=== PATIENT | male | born 1940 | race Caucasian/White ===

== ENCOUNTER 2016-12-16 06:15 | Day surgery (SDC) | payer OTHER ==
[2016-12-16] VITALS (14 sets, daily range): BP systolic 117–144; BP diastolic 53–82; PULSE 62–138; RESP 10–18; Ht 165.1 cm; Wt 81.5 kg
[~2016-12-16] VITALS: Ht 165.1 cm; Wt 81.5 kg
[~2016-12-16 06:15] MED LIST: ATOR20TA38 PO; CARB1TAB18 PO; CHOL2000 PO; DONE10TA7 PO; ERGO500014 PO; FER325 PO; FURO40TA4 PO; INSU100V27 SC; LANT3I SC; LEVO500T10 PO; MEMA28CA PO; METO10TA92 PO; METO25TA4 PO; METR500T PO; PANT40TA3 PO; SAN30GM TOP
[2016-12-16] MEDS ORDERED: LIDOCAINE 1% (MDV) 20 ML INJ ONE (07:07)
[2016-12-16] MEDS ORDERED: MIDAZOLAM 1 MG/ML 2 ML INJ ONE (07:07)
[2016-12-16] MEDS ORDERED: FENTAnyl 50 MCG/ML VIAL ONE (07:07)
[2016-12-16 07:17] LABS: BASOPHIL # 0.1 10^3/ul (0.0-0.1); BASOPHILS % 0.5 % (0.0-2.0); EOSINOPHILS # 0.2 10^3/ul (0.0-0.5); EOSINOPHILS % 2.2 % (0.0-7.0); HEMOGLOBIN 8.9 g/dl (14.0-18.0); LYMPHOCYTES # 3.2 10^3/ul (0.8-2.9); LYMPHOCYTES % 34.3 % (15.0-51.0); MEAN CORPUSCULAR HEMOGLOBIN 30.1 pg (29.0-33.0); MEAN CORPUSCULAR VOLUME 91.2 fl (82.0-101.0); MONOCYTE # 0.6 10^3/ul (0.3-0.9); MONOCYTES % 5.9 % (0.0-11.0); NEUTROPHIL # 5.3 10^3/ul (1.6-7.5); NEUTROPHILS % 56.8 % (39.0-77.0); PLATELET COUNT 238 10^3/UL (140-415); RED BLOOD COUNT 2.96 10^6/ul (4.70-6.10); WHITE BLOOD COUNT 9.3 10^3/ul (4.8-10.8)
[2016-12-16 07:34] LABS: INR 1.07; PROTIME 13.9 Sec (12.2-14.2); PT RATIO 1.1
[2016-12-16 07:35] LABS: PARTIAL THROMBOPLASTIN TIME 36.4 Sec (25.0-35.0)
[2016-12-16 07:36] LABS: ALBUMIN 3.7 g/dl (3.3-4.9); ALBUMIN/GLOBULIN RATIO 0.69; BILIRUBIN,INDIRECT 0.2 mg/dl (0-1.1); BILIRUBIN,TOTAL 0.2 mg/dl (0.2-1.3); CALCIUM 9.4 mg/dl (8.4-10.2); CREATININE 0.91 mg/dl (0.61-1.24); POTASSIUM 4.4 mmol/L (3.5-5.1)
--- NOTE | 2016-12-16 07:41 | RADRPT ---
PROCEDURE: XR Chest AP portable CLINICAL INDICATION: Preop TECHNIQUE: An AP portable radiograph of the chest was submitted. COMPARISON: 03/19/2016 FINDINGS: Support Hardware: None Cardiovascular: The cardiovascular silhouette appears unremarkable. Lung Mcdaniel: The lung mcdaniel appear clear with no nodule, alveolar infiltrate, or interstitial promi nence evident. Pleural Spaces: No pneumothorax or pleural effusion is identified. Osseous Structures: The osseous structures appear intact. Soft Tissues: The soft tissues appear unremarkable. IMPRESSION: Stable and unremarkable portable chest. Physician Maribel Date Time Electronically viewed and signed by [place] Physician on 12/16/2016 07:41 RH/
[2016-12-16] MEDS ORDERED: HEPARIN 1000 UNITS/ML 10 ML INJ ONE (08:19)
[2016-12-16] MEDS ORDERED: IODIXANOL LOCM 100 ML BTL ONE (08:19)
[2016-12-16] MEDS ORDERED: CLOPIDOGREL 300 MG TAB ONE ×2 (08:40→08:47)
[2016-12-16] MEDS ORDERED: CLOPIDOGREL 75 MG TAB PO ONE (09:00)
--- NOTE | 2016-12-16 09:29 | OPR ---
Date/Time of Note Date/Time of Note DATE: 12/16/16 TIME: 09:27 Operative Report Preoperative Diagnosis R foot gangrene Postoperative Diagnosis same Operation/Procedure Performed Right leg revascularization Surgeon: JAIR CAMPOS MD Anesthesia: other Estimated Blood Loss: none Complications: None JAIR CAMPOS MD Dec 16, 2016 09:29
--- NOTE | 2016-12-16 09:43 | OPR ---
DATE OF OPERATION: 12/16/2016 PREOPERATIVE DIAGNOSIS: Diagnosis right second toe and heel gangrene. POSTOPERATIVE DIAGNOSIS: Right second toe and heel gangrene. OPERATION PERFORMED: 1. Abdominal aortogram. 2. Bilateral lower extremity runoff. 3. Percutaneous revascularization of the right superficial femoral artery using mechanical atherectomy and angioplasty. SURGEON: Kendall Sterling MD ANESTHESIA: Local anesthesia with sedation. ESTIMATED BLOOD LOSS: Minimal. COMPLICATIONS: There were no intraprocedural complications. INDICATIONS: This is a 76-year-old man. He has Alzheimer disease. He has had a previous stroke. He has developed gangrene of the right second toe and he has a plantar ulcer with some infection. He has chronic heel gangrene. He had a recent arterial duplex that showed subtotal occlusion of the right SFA. I brought him in today for right lower extremity revascularization to salvage the limb. I discussed with his family the options of just attempting the foot rather than trying to salvage it, and they are adamant that they want to try and save his foot. OPERATIVE PROCEDURE: Patient was brought to the construction or leak gang laborer, placed on table in supine position. Left groin was prepped and draped in the usual sterile fashion. I began by infiltrating over the left common femoral artery using 10 cc 1 percent lidocaine. Using ultrasound guidance to identify the left common femoral artery, I then used a micropuncture needle to enter the artery under ultrasound guidance. An 0.018 wire was inserted through the needle into the artery and then a micropuncture sheath was advanced over the wire into the artery. I then advanced a 0.035 Bentson wire up into the abdominal aorta. I exchanged the micropuncture sheath for a 5-Latvian sheath over the wire. I advanced the Omni Flush catheter into the infrarenal aorta and did an aortogram. I advanced the Omni Flush catheter up and over the bifurcation using an Advantage wire for support, and advanced it down into the right mid SFA and did angiography down the right lower extremity. FINDINGS OF ANGIOGRAPHY: The infrarenal aorta is calcified but patent. There is no significant stenosis. Both common external and internal iliac arteries are ectatic and calcified, but widely patent. The bilateral common superficial and profunda femoral arteries are patent in the upper thigh. The right superficial femoral artery is patent down to a few cm above the adductor where there is a focal area of subtotal occlusion. Below this, the artery reconstitutes and is patent and good caliber. There is some diffuse irregularity through the popliteal but it is patent below the knee. There is single-vessel runoff via the peroneal artery. The anterior and posterior tibial arteries are completely occluded and are not visualized at all. The peroneal artery is patent down to the ankle. It then gives off collaterals into the foot which mainly fill a small and diseased dorsalis pedis artery. There is not tremendous flow into the foot itself, although the peroneal is patent all the way down. It does collateralize into the foot. I decided to treat the SFA to help improve perfusion into the foot. I then advanced an Advantage wire across the subtotal occlusion in the SFA. I gave the patient 5000 units of heparin intravenously. I then exchanged the 5-Latvian sheath in the left groin for a 6-Latvian 45- cm sheath which was left in the right superficial femoral artery. I then advanced the Quick Cross catheter through the subtotal occlusion and into the above- knee popliteal. I then advanced a 0.014 V-14 control wire through the Quick Cross, and I removed the Quick Cross catheter. I then used a SilverHawk atherectomy device to treat the subtotal occlusion in the SFA and made four passes, rotating the device with each pass to get a different cutting area. I then post dilated this with a 5 mm x 8 cm balloon to 12 atmospheres. There was still a little bit of a waist, so I then used a 6 mm x 4 cm AngioSculpt balloon to treat the segment. IT improved and after the AngioSculpt, there was no dissection. The artery was widely patent with less than 20 percent residual stenosis at the site of the area of previous subtotal occlusion. There is very brisk flow straight through. There was some mild persistent narrowing but it did not complete give out even with AngioSculpt and high-pressure inflation. I did not feel a stent was necessary. It was not a dissection, and I did not think a stent would do anything with this is as it is a very calcified, sort of restriction further out in the artery and it was less than 20 percent. At this point, there was brisk flow down through the previously subtotal occlusion in the SFA and in to the popliteal. I was happy with the result. I then let the sheath back into the left external iliac artery. I did a completion run to confirm that the puncture site was in the left common femoral artery. I advanced a Bentson wire back up into the abdominal aorta and then used a 6-Latvian Angio-Seal device to close the puncture site in the left groin with good hemostasis. He tolerated procedure well without complication and was transferred to the recovery room in stable condition. Dictated By: Kendall Sterling MD /[email or web address] a /Document#: [id number] CC: Kevin Wright DPM; JERZY SAVAGE;*EndCC*
--- NOTE | 2016-12-16 15:05 | RADRPT ---
Vent Rate: 67 bpm RR Interval: 0 msec ME Interval: 142 msec QRS Duration: 84 msec QT Interval: 404 msec QTC Interval: 426 msec P-R-T [place]: 47 - 31 - 83 degrees Normal sinus rhythm with sinus arrhythmia Normal ECG Electronically Signed By: Kendall Wharton [id number]
== END 2016-12-16 12:40 | disposition home or self-care (01) ==
LOC: SDS 06:15
PROVIDERS: ATTEND Surgery Vascular Surgery
DX: I96 Gangrene, not elsewhere classified (principal); E11.9 Type 2 diabetes mellitus without complications; I10 Essential (primary) hypertension; E78.5 Hyperlipidemia, unspecified; F03.90 Unspecified dementia, unspecified severity, without behavioral disturbance, psychotic disturbance, mood disturbance, and anxiety; Z86.73 Personal history of transient ischemic attack (TIA), and cerebral infarction without residual deficits; I25.10 Atherosclerotic heart disease of native coronary artery without angina pectoris; Z95.5 Presence of coronary angioplasty implant and graft; Z87.891 Personal history of nicotine dependence; Z79.82 Long term (current) use of aspirin
CPT/HCPCS: 37248; 71010; 75630; 80053; 85025; 85610; 85730; 93005; C1724; C1725; C1769; C1894; J1644; J2250; J3010; Q9967; Z7610

== ENCOUNTER 2017-07-20 05:41 | Day surgery (SDC) | END 2017-07-20 11:10 | disposition home or self-care (01) ==

== ENCOUNTER 2017-09-07 09:36 | Day surgery (SDC) | END 2017-09-07 15:35 | disposition home or self-care (01) ==